=== PATIENT | female | born 1940 | race Caucasian/White ===

== ENCOUNTER 2022-11-14 10:56 | Inpatient (IN) | payer OTHER ==
[~2022-11-14] VITALS: Ht 152.4 cm; Wt 67.1 kg
[~2022-11-14 10:56] MED LIST: ATEN-41 PO; GABA-529 PO; HYDR-914 PO; SERT-436 PO; SIMV-43 PO
[2022-11-14 10:57] VITALS: BP_SYST 115; PULSE 80; RESP 18; TEMP 97.2; O2SAT 97
[2022-11-14] MEDS ORDERED: DOCU-144 PO (11:23)
[2022-11-14] MEDS ORDERED: HYDR-3917 PO (11:23)
[2022-11-14] MEDS ORDERED: GABA-529 PO (11:23)
[2022-11-14] MEDS ORDERED: SERT-436 PO (11:23)
[2022-11-14] MEDS ORDERED: METO50TA7 PO (11:23)
[2022-11-14] MEDS ORDERED: SIMV-343 PO (11:23)
[2022-11-14 11:49] LABS: BASOPHILS % (AUTO) 1.2 % (0.0-2.0); EOSINOPHILS # (AUTO) 0.1 K/uL (0.0-0.4); EOSINOPHILS % (AUTO) 2.8 % (0.0-4.0); HEMATOCRIT 22.1 % (36-48); LYMPHOCYTES # (AUTO) 0.7 K/uL (1.0-5.5); MEAN CORPUSCULAR HEMOGLOBIN 20 pg (27-31); MEAN CORPUSCULAR HGB CONC 30 % (32-36); MEAN CORPUSCULAR VOLUME 66 fL (79.0-98.0); MONOCYTES # (AUTO) 0.4 K/uL (0.0-1.0); NEUTROPHILS # (AUTO) 2.4 K/uL (1.8-7.7); PLATELET COUNT (AUTO) 339 K/uL (130-430); RED BLOOD CELL COUNT(AUTO) 3.35 MIL/uL (4.2-6.2); RED CELL DISTRIBUTION WIDTH 20.4 % (9.0-15.0); WHITE BLOOD COUNT (AUTO) 3.6 K/uL (4.8-10.8)
[2022-11-14 11:59] LABS: HEMOGLOBIN 6.5 g/dL (12.0-16.0)
[2022-11-14 12:07] LABS: ANION GAP 5 (5-15); CALCIUM 8.1 mg/dL (8.4-11.0); CARBON DIOXIDE 29 mmol/L (23-29); CHLORIDE 105 mmol/L (98-107); CREATININE 1.02 mg/dL (0.55-1.30); GLUCOSE 90 mg/dL (74-106); POTASSIUM 3.3 mmol/L (3.5-5.1); SODIUM SERUM 139 mmol/L (136-145); UREA NITROGEN, BLOOD 13 mg/dL (8-21)
[2022-11-14 12:11] LABS: ALANINE AMINOTRANSFERASE 11 U/L (12-78); ALBUMIN 3.4 g/dL (3.4-4.8); ASPARTATE AMINOTRANSFERASE 10 U/L (10-37); TOTAL BILIRUBIN 0.5 mg/dL (0.0-1.0); TOTAL PROTEIN, SERUM 6.8 g/dL (6.4-8.3)
[2022-11-14 12:32] LABS: ANISOCYTOSIS 2+; HYPOCHROMASIA 3+; OVALOCYTES FEW
[2022-11-14 16:50] VITALS: BP_SYST 156; PULSE 59; RESP 18; TEMP 98.4; O2SAT 99
[2022-11-14 17:15] VITALS: BP_SYST 156; PULSE 59; RESP 16; TEMP 98.4
[2022-11-14] MEDS ORDERED: ATENOLOL 25 MG TABLET(TENORMIN) PO SCH (19:45)
[2022-11-14] MEDS ORDERED: NALOXONE HCL 0.4 MG/ML AMP (NARCAN) IVP PRN ×2 (19:45)
[2022-11-14] MEDS ORDERED: ONDANSETRON HCL 4 MG/2 ML VIAL IVP PRN (19:45)
[2022-11-14] MEDS ORDERED: LORazepam 2 MG/ML VIAL IVP PRN (19:45)
[2022-11-14] MEDS ORDERED: DOCUSATE SODIUM 100 MG CAPSULE PO PRN (19:45)
[2022-11-14] MEDS ORDERED: HYDROcodone/ACETAMIN 10-325 MG TAB PO PRN (19:45)
[2022-11-14 20:00] VITALS: BP_SYST 175; PULSE 66; RESP 18; TEMP 97.5; O2SAT 97
[2022-11-14] MEDS ORDERED: METOPROLOL SUCCINATE 50 MG TAB.SR.24H (TOPROL XL) PO ONE (20:00)
[2022-11-14] MEDS ORDERED: ACETAMINOPHEN 325 MG TABLET PO PRN (20:00)
[2022-11-14] MEDS: GABAPENTIN 100 MG CAPSULE PO SCH (21:05)
[2022-11-14] MEDS: SIMVASTATIN 20 MG TABLET PO SCH (21:06)
[2022-11-14] MEDS: NORMAL SALINE 5 ML DISP.SYRIN IVF SCH (21:09)
[2022-11-14 23:47] VITALS: BP_SYST 172; PULSE 62; RESP 18; TEMP 98.1; O2SAT 96
[2022-11-15 02:56] VITALS: O2SAT 97
[2022-11-15] MEDS: NORMAL SALINE 5 ML DISP.SYRIN IVF SCH ×3 (06:34→22:01)
[2022-11-15 07:16] LABS: BASOPHILS % (AUTO) 0.8 % (0.0-2.0); EOSINOPHILS # (AUTO) 0.1 K/uL (0.0-0.4); EOSINOPHILS % (AUTO) 2.7 % (0.0-4.0); HEMATOCRIT 30.3 % (36-48); HEMOGLOBIN 9.2 g/dL (12.0-16.0); LYMPHOCYTES # (AUTO) 1.1 K/uL (1.0-5.5); LYMPHOCYTES % (AUTO) 21.9 % (20.5-51.5); MEAN CORPUSCULAR HEMOGLOBIN 22 pg (27-31); MEAN CORPUSCULAR HGB CONC 31 % (32-36); MEAN CORPUSCULAR VOLUME 71 fL (79.0-98.0); MONOCYTES # (AUTO) 0.4 K/uL (0.0-1.0); MONOCYTES % (AUTO) 9.3 % (1.7-9.3); NEUTROPHILS # (AUTO) 3.1 K/uL (1.8-7.7); NEUTROPHILS % (AUTO) 65.3 % (40.0-70.0); PLATELET COUNT (AUTO) 293 K/uL (130-430); RED BLOOD CELL COUNT(AUTO) 4.27 MIL/uL (4.2-6.2); WHITE BLOOD COUNT (AUTO) 4.8 K/uL (4.8-10.8)
[2022-11-15] MEDS ORDERED: MEPERIDINE 100 MG INJ. 100 MG/ML VIAL ONE (07:40)
[2022-11-15] MEDS ORDERED: SIMETHICONE 40 MG/0.6 ML ML ONE (07:40)
[2022-11-15] MEDS ORDERED: MIDAZOLAM HCL 5 MG/5 ML VIAL ONE (07:41)
[2022-11-15 07:43] LABS: RED CELL DISTRIBUTION WIDTH 22.8 % (9.0-15.0)
[2022-11-15 07:45] LABS: ALANINE AMINOTRANSFERASE 12 U/L (12-78); ALBUMIN 3.3 g/dL (3.4-4.8); ANION GAP 8 (5-15); ASPARTATE AMINOTRANSFERASE 14 U/L (10-37); CALCIUM 8.1 mg/dL (8.4-11.0); CARBON DIOXIDE 27 mmol/L (23-29); CHLORIDE 106 mmol/L (98-107); CREATININE 0.79 mg/dL (0.55-1.30); GLUCOSE 83 mg/dL (74-106); PHOSPHORUS 3.6 mg/dL (2.7-4.5); POTASSIUM 3.7 mmol/L (3.5-5.1); SODIUM SERUM 141 mmol/L (136-145); TOTAL BILIRUBIN 0.9 mg/dL (0.0-1.0); TOTAL PROTEIN, SERUM 6.7 g/dL (6.4-8.3); UREA NITROGEN, BLOOD 12 mg/dL (8-21)
[2022-11-15] MEDS ORDERED: fentaNYL CITRATE/PF 100 MCG/2 ML AMP ONE (08:06)
[2022-11-15 09:26] VITALS: BP_SYST 168; PULSE 56; RESP 19; TEMP 98.1; O2SAT 96
[2022-11-15] MEDS: FERROUS SULFATE 325 MG TABLET.DR PO SCH ×2 (10:36→22:00)
[2022-11-15] MEDS: SERTRALINE HCL 50 MG TABLET PO SCH (10:37)
[2022-11-15] MEDS: GABAPENTIN 100 MG CAPSULE PO SCH ×2 (10:37→22:00)
[2022-11-15] MEDS: PANTOPRAZOLE SODIUM 40 MG TAB PO SCH (10:37)
[2022-11-15] MEDS: METOPROLOL SUCCINATE 50 MG TAB.SR.24H (TOPROL XL) PO SCH (10:38)
[2022-11-15] MEDS ORDERED: BISACODYL 5 MG TABLET.DR (DULCOLAX) PO ONE (17:00)
[2022-11-15 17:28] VITALS: BP_SYST 185; PULSE 58; RESP 18; TEMP 97.7; O2SAT 98
[2022-11-15] MEDS ORDERED: hydrALAZINE HCL 20 MG/ML VIAL IVP PRN (17:45)
[2022-11-15] MEDS ORDERED: HYDROCHLOROTHIAZIDE 25 MG TABLET (HCTZ) PO ONE (17:45)
[2022-11-15] MEDS ORDERED: GOLYTELY / COLYTE SOLUTION 4 LITERS PO ONE (18:00)
[2022-11-15 18:58] VITALS: BP_SYST 124; PULSE 75; RESP 18; O2SAT 98
[2022-11-15 20:00] VITALS: BP_SYST 118; PULSE 71; RESP 18; TEMP 97.9; O2SAT 97
[2022-11-15] MEDS: ACETAMINOPHEN 325 MG TABLET PO PRN (22:00)
[2022-11-15] MEDS: SIMVASTATIN 20 MG TABLET PO SCH (22:00)
[2022-11-16 00:19] VITALS: BP_SYST 145; PULSE 64; RESP 17; TEMP 98; O2SAT 97
[2022-11-16 01:31] VITALS: O2SAT 97
[2022-11-16] MEDS: ACETAMINOPHEN 325 MG TABLET PO PRN (01:51)
[2022-11-16] MEDS ORDERED: PRO40 PO (03:29)
[2022-11-16] MEDS ORDERED: FERR-31 PO (03:29)
[2022-11-16] MEDS ORDERED: HYDR25TA4 PO ×2 (03:32)
[2022-11-16 05:25] LABS: BASOPHILS % (AUTO) 0.8 % (0.0-2.0); EOSINOPHILS # (AUTO) 0.1 K/uL (0.0-0.4); EOSINOPHILS % (AUTO) 1.8 % (0.0-4.0); HEMATOCRIT 31.3 % (36-48); HEMOGLOBIN 9.7 g/dL (12.0-16.0); LYMPHOCYTES # (AUTO) 1.1 K/uL (1.0-5.5); LYMPHOCYTES % (AUTO) 20.2 % (20.5-51.5); MEAN CORPUSCULAR HEMOGLOBIN 22 pg (27-31); MEAN CORPUSCULAR HGB CONC 31 % (32-36); MEAN CORPUSCULAR VOLUME 70 fL (79.0-98.0); MONOCYTES # (AUTO) 0.6 K/uL (0.0-1.0); MONOCYTES % (AUTO) 10.6 % (1.7-9.3); NEUTROPHILS # (AUTO) 3.6 K/uL (1.8-7.7); NEUTROPHILS % (AUTO) 66.6 % (40.0-70.0); PLATELET COUNT (AUTO) 327 K/uL (130-430); RED BLOOD CELL COUNT(AUTO) 4.48 MIL/uL (4.2-6.2); RED CELL DISTRIBUTION WIDTH 23.3 % (9.0-15.0); RETICULOCYTE COUNT 1.5 % (0.5-1.5); WHITE BLOOD COUNT (AUTO) 5.4 K/uL (4.8-10.8)
[2022-11-16 05:35] LABS: INR 1.1 (0.8-1.2); PROTHROMBIN TIME 11.2 SECS (9.5-12.5)
[2022-11-16 05:36] LABS: ANION GAP 10 (5-15); CALCIUM 8.6 mg/dL (8.4-11.0); CARBON DIOXIDE 25 mmol/L (23-29); CHLORIDE 104 mmol/L (98-107); CREATININE 0.73 mg/dL (0.55-1.30); GLUCOSE 86 mg/dL (74-106); POTASSIUM 3.4 mmol/L (3.5-5.1); SODIUM SERUM 139 mmol/L (136-145); UREA NITROGEN, BLOOD 5 mg/dL (8-21)
[2022-11-16 05:40] LABS: TOTAL IRON BIND. CAPACITY 421 ug/dL (250-450)
[2022-11-16] MEDS: NORMAL SALINE 5 ML DISP.SYRIN IVF SCH ×3 (06:00→21:36)
[2022-11-16] MEDS ORDERED: fentaNYL CITRATE/PF 100 MCG/2 ML AMP ONE (06:40)
[2022-11-16] MEDS ORDERED: MIDAZOLAM HCL 5 MG/5 ML VIAL ONE (06:40)
[2022-11-16 08:00] VITALS: BP_SYST 142; PULSE 86; RESP 20; TEMP 98.2; O2SAT 94; O2SAT 98
[2022-11-16] MEDS ORDERED: HYDROCHLOROTHIAZIDE 25 MG TABLET (HCTZ) PO SCH ×2 (09:00)
[2022-11-16] MEDS: METOPROLOL SUCCINATE 50 MG TAB.SR.24H (TOPROL XL) PO SCH (09:12)
[2022-11-16] MEDS: PANTOPRAZOLE SODIUM 40 MG TAB PO SCH (09:13)
[2022-11-16] MEDS: SERTRALINE HCL 50 MG TABLET PO SCH (09:13)
[2022-11-16] MEDS: FERROUS SULFATE 325 MG TABLET.DR PO SCH ×2 (09:13→20:37)
[2022-11-16] MEDS: GABAPENTIN 100 MG CAPSULE PO SCH ×2 (09:14→20:37)
[2022-11-16] MEDS: HYDROcodone/ACETAMIN 5-325 MG TAB (NORCO/ VICODIN) PO PRN ×2 (09:19→20:39)
[2022-11-16] MEDS ORDERED: POTASSIUM CHLORIDE 20 MEQ TAB.PRT.SR PO ONE (12:15)
[2022-11-16 12:41] VITALS: BP_SYST 150; PULSE 63; RESP 20; TEMP 98.1; O2SAT 98
[2022-11-16 16:54] VITALS: BP_SYST 145; PULSE 80; RESP 19; TEMP 98.3; O2SAT 96
[2022-11-16] MEDS: SIMVASTATIN 20 MG TABLET PO SCH (20:37)
[2022-11-17 00:11] VITALS: BP_SYST 141; PULSE 86; RESP 18; TEMP 98.2; O2SAT 94
[2022-11-17 03:26] VITALS: O2SAT 95
[2022-11-17] MEDS: NORMAL SALINE 5 ML DISP.SYRIN IVF SCH (06:10)
[2022-11-17 06:40] LABS: BASOPHILS % (AUTO) 0.9 % (0.0-2.0); EOSINOPHILS # (AUTO) 0.1 K/uL (0.0-0.4); HEMOGLOBIN 10.5 g/dL (12.0-16.0); LYMPHOCYTES # (AUTO) 1.3 K/uL (1.0-5.5); LYMPHOCYTES % (AUTO) 24.5 % (20.5-51.5); MEAN CORPUSCULAR HEMOGLOBIN 22 pg (27-31); MEAN CORPUSCULAR HGB CONC 31 % (32-36); MEAN CORPUSCULAR VOLUME 70 fL (79.0-98.0); MONOCYTES # (AUTO) 0.6 K/uL (0.0-1.0); MONOCYTES % (AUTO) 11.8 % (1.7-9.3); NEUTROPHILS # (AUTO) 3.3 K/uL (1.8-7.7); NEUTROPHILS % (AUTO) 60.8 % (40.0-70.0); PLATELET COUNT (AUTO) 326 K/uL (130-430); RED BLOOD CELL COUNT(AUTO) 4.83 MIL/uL (4.2-6.2); WHITE BLOOD COUNT (AUTO) 5.4 K/uL (4.8-10.8)
[2022-11-17 06:58] LABS: ANION GAP 9 (5-15); CALCIUM 8.7 mg/dL (8.4-11.0); CARBON DIOXIDE 27 mmol/L (23-29); CHLORIDE 106 mmol/L (98-107); CREATININE 0.86 mg/dL (0.55-1.30); GLUCOSE 87 mg/dL (74-106); POTASSIUM 3.8 mmol/L (3.5-5.1); SODIUM SERUM 142 mmol/L (136-145); UREA NITROGEN, BLOOD 5 mg/dL (8-21)
[2022-11-17 07:38] LABS: RED CELL DISTRIBUTION WIDTH 23.4 % (9.0-15.0)
[2022-11-17 08:00] VITALS: BP_SYST 137; PULSE 70; RESP 16; TEMP 98.2; O2SAT 100; O2SAT 98
[2022-11-17] MEDS: GABAPENTIN 100 MG CAPSULE PO SCH (09:05)
[2022-11-17] MEDS: FERROUS SULFATE 325 MG TABLET.DR PO SCH (09:05)
[2022-11-17] MEDS: SERTRALINE HCL 50 MG TABLET PO SCH (09:06)
[2022-11-17] MEDS: METOPROLOL SUCCINATE 50 MG TAB.SR.24H (TOPROL XL) PO SCH (09:06)
[2022-11-17] MEDS: PANTOPRAZOLE SODIUM 40 MG TAB PO SCH (09:06)
[2022-11-17 11:46] VITALS: BP_SYST 126; PULSE 65; RESP 18; TEMP 98.4; O2SAT 98
[2022-11-17 12:00] VITALS: BP_SYST 132; PULSE 65; RESP 18; TEMP 98.4; O2SAT 98
[2022-11-18 08:06] LABS: FOLATE (FOLIC ACID) 5.3 ng/mL (>3.0)
== END 2022-11-17 13:55 | disposition home health service (06) | DRG 393 ==
LOC: SED 10:56 → SMU 12:53
PROVIDERS: ADMIT Preventive Medicine Preventive Medicine/Occupational Environmental Medicine; ATTEND Preventive Medicine Preventive Medicine/Occupational Environmental Medicine
PROC: 30233N1 Transfusion of Nonautologous Red Blood Cells into Peripheral Vein, Percutaneous Approach (ICD-10-PCS; 2022-11-14)
PROC: 0DB78ZX Excision of Stomach, Pylorus, Via Natural or Artificial Opening Endoscopic, Diagnostic (ICD-10-PCS; 2022-11-15)
PROC: 0DB68ZX Excision of Stomach, Via Natural or Artificial Opening Endoscopic, Diagnostic (ICD-10-PCS; 2022-11-15)
PROC: 0DB98ZX Excision of Duodenum, Via Natural or Artificial Opening Endoscopic, Diagnostic (ICD-10-PCS; principal; 2022-11-15 08:00)
PROC: 0DBK8ZZ Excision of Ascending Colon, Via Natural or Artificial Opening Endoscopic (ICD-10-PCS; 2022-11-16)
PROC: 0DBN8ZZ Excision of Sigmoid Colon, Via Natural or Artificial Opening Endoscopic (ICD-10-PCS; 2022-11-16)
DX: K63.5 Polyp of colon (principal); K25.4 Chronic or unspecified gastric ulcer with hemorrhage; D62 Acute posthemorrhagic anemia; K64.8 Other hemorrhoids; I10 Essential (primary) hypertension; E78.5 Hyperlipidemia, unspecified; D72.819 Decreased white blood cell count, unspecified; M16.12 Unilateral primary osteoarthritis, left hip; K44.9 Diaphragmatic hernia without obstruction or gangrene; Z96.641 Presence of right artificial hip joint; K57.30 Diverticulosis of large intestine without perforation or abscess without bleeding; I25.10 Atherosclerotic heart disease of native coronary artery without angina pectoris; E87.6 Hypokalemia; D50.9 Iron deficiency anemia, unspecified; E83.51 Hypocalcemia; D25.9 Leiomyoma of uterus, unspecified; Z79.82 Long term (current) use of aspirin; Z79.899 Other long term (current) drug therapy; Z90.49 Acquired absence of other specified parts of digestive tract
CPT/HCPCS: 36415; 43239; 45384; 45385; 76376; 80048; 80053; 82272; 82607; 82728; 82746; 83540; 83550; 83735; 84100; 85025; 85044; 85610-TC; 85730-TC; 86886; 86900; 86901; 86920; 87081; 88305; 88312; 88313; 99291; J0360; J2175; J2250; J3010; P9021